=== PATIENT | female | born 1970 | race Caucasian/White ===

== ENCOUNTER 2017-03-20 10:00 | Day surgery (SDC) | payer OTHER ==
[~2017-03-20] VITALS: Ht 172.7 cm; Wt 78.4 kg
[~2017-03-20 10:00] MED LIST: BUPIVACAINE/PF 0.5% ONE; ISOSULFAN BLUE 10 MG/ML, 5ML IV ONE; None at this Time
[2017-03-20] MEDS ORDERED: LACTATED RINGERS 1,000 ML IV SCH (10:10)
[2017-03-20 10:12] VITALS: BP 162/95
[2017-03-20 10:22] LABS: HCG UR LOT HCG7030192
[2017-03-20 10:29] LABS: HCG UR OBC PASS
[2017-03-20] MEDS ORDERED: LIDOCAINE 1%, 20ML ONE (10:45)
[2017-03-20] MEDS ORDERED: MIDAZOLAM 1 MG/ML, 2ML ONE (11:41)
[2017-03-20] MEDS ORDERED: DEXAMETHASONE 4 MG/ML, 1ML ONE (11:41)
[2017-03-20] MEDS ORDERED: SUCCINYLCHOLINE 20 MG/ML, 10ML ONE (11:41)
[2017-03-20] MEDS ORDERED: PROPOFOL 10 MG/ML, 20ML ONE (11:41)
[2017-03-20] MEDS ORDERED: NEOSTIGMINE 1 MG/ML, 10ML ONE (11:41)
[2017-03-20] MEDS ORDERED: CEFAZOLIN 1,000 MG ONE (11:41)
[2017-03-20] MEDS ORDERED: ONDANSETRON 2MG/ML, 2ML ONE (11:41)
[2017-03-20] MEDS ORDERED: ROCURONIUM 10 MG/ML,10ML ONE (11:41)
[2017-03-20] MEDS ORDERED: GLYCOPYRROLATE 0.2MG/1ML, 5ML ONE (11:41)
[2017-03-20] MEDS ORDERED: FENTANYL PF 250 MCG/5ML ONE (11:42)
[2017-03-20] MEDS ORDERED: LIDOCAINE 4%, 4 ML SYR/CANN TP ONE (11:51)
[2017-03-20] MEDS ORDERED: OXYcodone 5 MG/5 ML ORAL.SOL UDC PO PRN (12:30)
[2017-03-20] MEDS ORDERED: HYDROmorphone 1 MG/ML, 1ML IV PRN (12:30)
[2017-03-20] MEDS ORDERED: PROMETHAZINE 25 MG/ML, 1ML IV PRN (12:30)
[2017-03-20] MEDS ORDERED: ONDANSETRON 2MG/ML, 2ML IVPush PRN (12:30)
[2017-03-20] MEDS ORDERED: FENTANYL PF 100 MCG/2ML IV PRN (12:30)
[2017-03-20] MEDS ORDERED: MEPERIDINE/PF 25MG/0.5ML IVPush PRN (12:30)
[2017-03-20] MEDS ORDERED: EPHEDRINE 50 MG/ML, 1ML ONE ×2 (12:32)
[2017-03-20] MEDS ORDERED: ACETAMINOPHEN 650 MG/20.3 ML UDC ONE (13:32)
[2017-03-20] MEDS ORDERED: ACETAMINOPHEN 325 MG TABLET ONE (13:32)
[2017-03-20] MEDS ORDERED: ACETAMINOPHEN 325 MG TABLET PO PRN (14:00)
== END 2017-03-20 14:55 ==
LOC: OUT 10:00
PROVIDERS: ATTEND Surgery
DX: C50.911 Malignant neoplasm of unspecified site of right female breast (principal)
CPT/HCPCS: 19301; 38525; 38792; 81025; 88307; 88329; 88333; 88341; 88342; A9541; J0330; J0690; J1100; J2250; J2405; J2704; J2710; J3010; J3490; J7120; G0461